=== PATIENT | male | born 1965 | race Caucasian/White ===

== ENCOUNTER 2025-03-22 08:35 | Outpatient (CLI) | payer OTHER, SELFPAY ==
--- NOTE | 2025-03-22 | S_PTH ---
PATIENT: Gurpreet Martinez LOC: [facility] U#:[id number] AGE/SX: 59/M ROOM: RE03/22/[address]: Meliton Guerrero MD : 1965 BED: DIS: 03/22/2025 SPEC #: [id number] RECD: 03/23/25 08:48 STATUS: [place] REQ #: [id number] DANIEL: 03/22/25 00:[address]: Meliton Guerrero DEPT: [facility] Surgical RECD BY: Juventino Mckeon ENTERED: 03/23/25 08:48 SP TYPE: Surgical OTHR DR: Nahomy Doan, ROXY Tissues: A - Colon Polypectomy Procedures: Hematoxylin and Eosin Stain Gross and Microscopic Level 4
--- OUTSIDE RECORDS SUMMARY | 2025-03-23 08:44 | XMS_ITS | Clinical Summary ---
Author Organization [facility] Address [address] [place] [id number] Care Team Providers Care Resident Inspector Name Role Phone Unavailable Primary Care [...]
== END 2025-03-22 08:36 | disposition home or self-care (01) ==
LOC: ANHLAB 03-23 08:36
PROVIDERS: PCP Nurse Practitioner; Visit Provider Internal Medicine Gastroenterology
DX: Z12.11 Encounter for screening for malignant neoplasm of colon (principal); D12.5 Benign neoplasm of sigmoid colon
CPT/HCPCS: 88305

== ENCOUNTER 2025-03-22 11:44 | Day surgery (SDC) | payer OTHER, SELFPAY ==
[2025-03-01 11:33] VITALS: BMI 28.3
[2025-03-22 12:04] VITALS: BP 165/93; PULSE 66; RESP 18; TEMP 36.8; O2SAT 99
--- NOTE | 2025-03-22 12:25 | WPDANESEPPF ---
Anes - Initial Pre Proc Eval Procedure: Operation Date: 03/22/25 13:30 Proposed Procedures p Screening Colonoscopy - Meliton Guerrero MD Date/Time: 03/22/25 12:25 Surgeon: Meliton Guerrero MD Pre Op Diagnosis: Encounter for screening for malignant neoplasm of Patient Data Age: 59 Gender: M Height: 1.75 m Weight: 84.65 kg Last Vital Signs Temp 98.3 F 03/22/25 12:04 Pulse 66 03/22/25 12:04 Resp 18 03/22/25 12:04 BP 165/93 H 03/22/25 12:04 Pulse Ox 99 03/22/25 12:04 O2 Del Method Room Air 03/22/25 12:04 Allergies Allergy/AdvReac Type Severity Reaction Status Date / Time No Known Allergies Allergy Verified 03/22/25 12:03 Home Medications ?Medication ?Instructions ?Recorded ?Confirmed ?Type atorvastatin 10 mg tablet (Lipitor) 10 mg PO QHS #90 tabs 03/01/25 03/22/25 Rx lisinopril 20 mg tablet 20 mg PO DAILY #30 tabs 03/08/25 03/22/25 Rx lansoprazole 15 mg capsule,delayed 15 mg PO PRN PRN heartburn 03/11/25 03/22/25 History release (Acid Assembler Trim (lansoprazole)) Patient hx anesthesia problems: none Family hx anesthesia problems: none Results Review: All pre-operative results and documents have been reviewed as part of the pre-operative evaluation. [facility] Past Medical History Medical History (Updated 02/24/25 @ 09:02 by Nahomy Doan APRN) Hx of renal calculi Family History Family History Mother Diabetes mellitus Sibling Diabetes mellitus Father COPD (chronic obstructive pulmonary disease) Social History Social History (Updated 02/24/25 @ 08:36 by Nahomy Doan APRN) Smoking packs per day: 0.5 Smoking cigarettes per day: 10.0 Years smoked: 20 Smoking pack-years: 10.00 Smoking status: Current some day smoker Tobacco type: cigarettes Second hand tobacco smoke exposure: Yes Additional smoking assessment comments: infrequently still has an occasional cigarette Alcohol intake: current Drinks per week: 6 Substance use: never Substance use type: does not use Lack of Transportation: No Lack of Food: Never True Current Housing: I Have Housing Concerned About Future Housing: No Difficulty Paying Gas/Electric Bills: No Difficulty Paying for Meds: No Currently Unemployed: No Education: High School Diploma/GED Difficulty w/ Childcare or Family Care: No Living arrangements: with family Occupation/Education: occupation Gender identity (if verbalized by the patient): Male Sexual Orientation (if Verbalized by the Patient): Straight or Heterosexual Anes - Eval Final PreProcedure Day of Procedure 03/22/25 12:25 Heart: regular rate and rhythm Lungs: clear to auscultation Airway: Mallampati scale class II Neurological: alert and oriented Last oral intake: >/= 8 hours ASA classification: II Anesthetic plan: proceed Anesthesia type and monitoring: general Results Review: All pre-operative results and documents have been reviewed as part of the pre-operative evaluation. Informed Consent: The patient's anesthetic plan and its attendant risks and benefits were discussed with the patient/family/POA. Questions were solicited and answers provided to the satisfaction of the patient/family/POA.
--- NOTE | 2025-03-22 12:26 | WPDANESPN ---
Anes - Prog Note Post-Op Date/Time: 03/22/25 12:26 Vital Signs: Last Vital Signs Temp 98.3 F 03/22/25 12:04 Pulse 66 03/22/25 12:04 Resp 18 03/22/25 12:04 BP 165/93 H 03/22/25 12:04 Pulse Ox 99 03/22/25 12:04 O2 Del Method Room Air 03/22/25 12:04 Pain Score (VAS): no Patient Feedback: Patient satisfied with anesthetic care.
--- NOTE | 2025-03-22 12:27 | PM.IMHP2 ---
H&P: HPI History of Present Illness Date/Time: 03/22/25 12:27 Chief Complaint: Screening colonoscopy Narrative: This is the patient's first colonoscopy. There are no GI symptoms and there is no family history of colorectal cancer. Review of Systems Review of Systems: All systems reviewed & are unremarkable except as noted in HPI and below PMFSH Past Medical History Medical History (Updated 03/22/25 @ 12:28 by Meliton Guerrero MD) Hx of renal calculi Family History Family History Mother Diabetes mellitus Sibling Diabetes mellitus Father COPD (chronic obstructive pulmonary disease) Social History Social History (Updated 02/24/25 @ 08:36 by Nahomy Doan APRN) Smoking packs per day: 0.5 Smoking cigarettes per day: 10.0 Years smoked: 20 Smoking pack-years: 10.00 Smoking status: Current some day smoker Tobacco type: cigarettes Second hand tobacco smoke exposure: Yes Additional smoking assessment comments: infrequently still has an occasional cigarette Alcohol intake: current Drinks per week: 6 Substance use: never Substance use type: does not use Lack of Transportation: No Lack of Food: Never True Current Housing: I Have Housing Concerned About Future Housing: No Difficulty Paying Gas/Electric Bills: No Difficulty Paying for Meds: No Currently Unemployed: No Education: High School Diploma/GED Difficulty w/ Childcare or Family Care: No Living arrangements: with family Occupation/Education: occupation Gender identity (if verbalized by the patient): Male Sexual Orientation (if Verbalized by the Patient): Straight or Heterosexual Meds Home Medications and Allergies Home Medications ?Medication ?Instructions ?Recorded ?Confirmed ?Type atorvastatin 10 mg tablet (Lipitor) 10 mg PO QHS #90 tabs 03/01/25 03/22/25 Rx lisinopril 20 mg tablet 20 mg PO DAILY #30 tabs 03/08/25 03/22/25 Rx lansoprazole 15 mg capsule,delayed 15 mg PO PRN PRN heartburn 03/11/25 03/22/25 History release (Acid Retail Support Associate (lansoprazole)) Allergies Allergy/AdvReac Type Severity Reaction Status Date / Time No Known Allergies Allergy Verified 03/22/25 12:03 Vital Signs Vital Signs - 24 hr 03/22/25 12:04 Temperature 98.3 F Pulse Rate 66 Respiratory Rate 18 Blood Pressure 165/93 H Pulse Oximetry 99 Oxygen Delivery Room Air Exam Const: General: cooperative and healthy appearing Resp: Effort & Inspection: normal respiratory effort and able to speak in complete sentences Auscultation: clear to auscultation bilaterally Cardio: Rate: regular rate Rhythm: regular rhythm GI: Inspection: normal to inspection GI Palp: No No hepatosplenomegaly present Auscultation: normal bowel sounds Rectal Exam: deferred Skin: General skin exam: normal color Psych: Appearance: grossly normal Mental Status: mental status grossly normal Assessment and Plan Assessment and plan (1) Encounter for screening colonoscopy: Code(s): Z12.11 - Encounter for screening for malignant neoplasm of colon Status: Acute Assessment and Plan: The patient is deemed a good candidate for the procedure. Consent signed. Will proceed. h
[2025-03-22] MEDS: LACTATED RINGERS 1,000 ML 150 ML IV CONT (12:46)
[2025-03-22 12:48] VITALS: BP 132/81; PULSE 62; RESP 15; O2SAT 96
[2025-03-22 12:58] VITALS: BP 129/89; PULSE 57; RESP 16; O2SAT 97
[2025-03-22 13:08] VITALS: BP 127/74; PULSE 60; RESP 16; O2SAT 96
--- OUTSIDE RECORDS SUMMARY | 2025-03-22 13:15 | XMS_ITS | Clinical Summary ---
Author Organization [facility] Address [address] [place] [id number] Care Team Providers Care Final Inspector Name Role Phone Unavailable Primary Care Provider Unavailabl e Social History Tobacco Use Types Packs/Day Years Used Date Smoking Tobacco: Never Assessed Sex and Gender Information Value Date Recorded Sex Assigned at Not on file Legal Sex Male 4:36 PM CDT Gender Identity Not on file Sexual Orientation Not on file Plan of Treatment Health Maintenance Due Date Last Done Comments Colorectal Cancer Screening Colonoscopy (10 Years) 1965 Annual Physical 07/08/1966 Hepatitis C 07/08/1981 DTaP, Tdap and Td Vaccines ( 1 - Tdap) 07/08/1982 Pneumococcal Vaccine: 50+ Ye ars (1 of 1 - PCV) 07/08/2013 Zoster Vaccines (1 of 2) 07/08/2013 COVID-19 Vaccine ( - 2024-2 6 season) 2024 Influenza Adult (#1) 2025 RSV Immunization or 60+ Years (1 - 1-dose 75+ series) 07/08/2038 Hepatitis A Vaccines Aged Out No long er eligible based on patient's age to complete this topic Meningococcal B Vaccine Aged Out No l onger eligible based on patient's age to complete this topic Meningococcal Vaccine Aged Out No tomas blanca eligible based on patient's age to complete this topic RSV Immunizations Under 20 Months Aged Out No longer eligible based on patient's age to complete this topic
== END 2025-03-22 13:22 | disposition home or self-care (01) ==
PROVIDERS: PCP Nurse Practitioner; Referring Provider Nurse Practitioner; Visit Provider Internal Medicine Gastroenterology
PROC: 0DJD8ZZ Inspection of Lower Intestinal Tract, Via Natural or Artificial Opening Endoscopic (ICD-10-PCS; CPT 45378; principal; 2025-03-22 13:30)
DX: Z12.11 Encounter for screening for malignant neoplasm of colon (principal); D12.5 Benign neoplasm of sigmoid colon
CPT/HCPCS: 45385